=== PATIENT | male | born 1950 | race Caucasian/White ===

== ENCOUNTER 2018-01-08 17:14 | Observation (INO) | payer MEDICARE, OTHER ==
[2018-01-08 18:54] LABS: #Eosinphils 0.1 thou/uL (0.0-0.7); #Lymphocytes 1.9 thou/uL (1.20-3.40); #Monocytes 0.7 thou/uL (0.11-0.59); %Basophils 0.4 % (0.0-1.0); %Eosinophils 1.1 % (0.0-10.0); %Lymphocytes 19.1 % (21.0-51.0); %Monocytes 7.2 % (0.0-10.0); %Neutrophils 72.2 % (42.0-75.0); Hemoglobin 15.2 g/dL (14.0-18.0); Mean Corpuscular HGB CONC 35.5 g/dL (32.0-36.0); Mean Corpuscular Hemoglobin 33.9 pg (27.0-31.0); Mean Corpuscular Volume 95.6 fL (78.0-98.0); Platelet Count 201 thou/uL (130-400); RBC Distribution Width 12.3 % (11.5-14.5); Red Blood Cell (RBC) Count 4.48 mill/uL (4.70-6.10); White Blood Cell (WBC) Count 9.7 thou/uL (4.8-10.8)
[2018-01-08 19:15] LABS: ALT (SGPT) 27 U/L (8-55); AST (SGOT) 31 U/L (5-34); Albumin 4.1 g/dL (3.4-4.8); Alkaline Phosphatase 33 U/L (40-150); Anion Gap 12 mmol/L (10-20); BUN (Urea Nitrogen) 22 mg/dL (8.4-25.7); Bilirubin, Total 1.3 mg/dL (0.2-1.2); Calc. Creatinine Clearance 0 mL/min (70-130); Calcium 8.7 mg/dL (7.8-10.44); Carbon Dioxide 20 mmol/L (23-31); Chloride 105 mmol/L (98-107); Estimated GFR-MDRD 50; Globulin 2.6 g/dL (2.4-3.5); Glucose 103 mg/dL (80-115); Potassium 4.3 mmol/L (3.5-5.1); Protein, Total 6.7 g/dL (5.8-8.1); Sodium 133 mmol/L (136-145)
--- NOTE | 2018-01-08 20:10 | CT ---
CT HEAD WITHOUT CONTRAST: Technique: Multiple contiguous axial images were obtained through the head without IV enhancement. Indication: Dysarthria. FINDINGS: Ventricles have normal size and position. No evidence of hemorrhage or mass. No evidence of cortical infarct identified. Sinuses and mastoids are aerated. IMPRESSION: No evidence of acute process. POS: [facility]
--- NOTE | 2018-01-08 22:50 | MRI ---
MRI BRAIN WITHOUT CONTRAST: Technique: Multiplanar, multisequence MRI images were obtained of the brain. Indications: Dysarthria. FINDINGS: Mild cortical volume loss. Ventricles have normal size and position. There is no evidence of restricted diffusion. No evidence of infarct, mass, or edema. No significant white matter abnormality. The intracranial internal carotid arteries and proximal cerebral arteries show flow voids. IMPRESSION: NO evidence of acute process. POS: [facility]
[2018-01-09 02:04] VITALS: BMI 34.2
[2018-01-09] MEDS ORDERED: Ondansetron ODT 4 MG TAB PO PRN (07:33)
[2018-01-09] MEDS ORDERED: Acetaminophen 325 MG TAB PO PRN (07:33)
--- NOTE | 2018-01-09 08:04 | HP ---
PRIMARY CARE PROVIDER: Dr. Ignacio Lundberg. Referred to the [facility] [[email or web address] Service after transfer from [facility] yesterday nichol fernandez. HISTORY OF PRESENT ILLNESS: The patient had trouble putting words together, had some loss of orienta tion. He was perseverating. This lasted several hours. He takes a baby aspirin daily. He had no v isual defect. No movement problem. Symptoms resolved after 3-4 hours. He received a full dose of a spirin in the emergency room in [place]. PAST MEDICAL HISTORY: Hypertension, coronary artery disease, post-coronary artery bypass graft 2 yea rs ago, dyslipidemia. CURRENT MEDICATIONS: Include aspirin 81 mg a day, Lipitor 40 mg a day, fenofibrate 145 mg a day, nakia apentin 300 mg 3 times a day, lisinopril 5 mg a day, metoprolol 50 mg twice a day, Flomax 0.4 mg a da y and Viibryd 40 mg a day, zolpidem 10 mg a day. ALLERGIES: No known drug allergies. PAST SURGICAL HISTORY: Negative other than his coronary artery bypass graft. FAMILY HISTORY: Both parents with coronary artery disease. No history of strokes in the family . SOCIAL HISTORY: Full code. at bedside, surrogate decision maker. No tobacco, no alcohol. REVIEW OF SYSTEMS: General: No dizziness, fainting. EYES: No double vision, blurred vision, flash ing light. ENT: No ear pain or drainage. No nasal bleeding. No trouble swallowing. Cardiac: No chest pain, orthopnea or paroxysmal nocturnal dyspnea. Respiratory: No cough, wheezing or asthma. Gastrointestinal: No nausea, vomiting, diarrhea, constipation or abdominal pain. Genit ourinary: No hematuria, dysuria. Musculoskeletal: No pain or swelling in his muscles or joints. N eurological: No prior neurological problem. Psychiatric: No anxiety, depression. Skin: No bruisi ng, bleeding or rash. Heme/Lymph: No tender or swollen lymph nodes in axilla, inguinal or cervical area. PHYSICAL EXAMINATION: GENERAL: The patient is alert, oriented, pleasant, cooperative gentleman. VITAL SIGNS: Temperature 97.8, pulse 78, respirations 18, blood pressure 117/53. HEENT: Reveal pupils equal, round, and reactive to light. Extraocular movements are intact. Sclera e white. Tympanic membranes are clear. Nose is clear. Oral mucous membranes are wet. Dental hygie ne is good. NECK: Supple, without jugular venous distention, adenopathy, thyromegaly. CHEST: Clear to auscultation and percussion. HEART: Had a regular rate and rhythm. First and second heart sounds are clear. There are no murmur s or gallops. ABDOMEN: Soft, bowel sounds normal. No hepatosplenomegaly, no masses, no rebound, no bruits. Bowel sounds intact. EXTREMITIES: No cyanosis, clubbing or edema. PULSES: Carotid, radial, femoral, and dorsalis pedis pulses intact and symmetric. SKIN: Warm and dry without bruises or rash. HEME/LYMPH: No tender or swollen lymph nodes in axilla, inguinal or cervical area. No petechial hem orrhages. NEUROLOGIC: Cranial nerves II through XII are intact. Deep tendon reflexes symmetric. Toes downgoi ng. Rekwov-zimn-ismcyc symmetric and normal. LABORATORY DATA AND IMAGING: Studies done. Brain CT, no acute process. MRI of the brain, no eviden ce of infarct, bleeding, midline shift, etc., reviewed by me. EKG: Regular sinus rhythm, nonspecifi c ST abnormality, reviewed by me. Sodium 133, potassium 4.3, CO2 20, BUN 22, creatinine 1.4, bilirub in 1.3. Transaminases normal. CBC normal. ADMITTING DIAGNOSES: 1. Transient ischemic attack in the left middle cerebral artery distribution. 2. Coronary artery disease, post-coronary artery bypass graft. 3. Hypertension. 4. Dyslipidemia. PLAN: The patient has been increased from 81 mg a day to 325 mg of aspirin a day. His CAT scan is u nremarkable as is his MRI. Carotid ultrasound and echocardiogram will be done. Aspirin as I said be fore, has been increased. His statin, blood pressure medicines, etc. will be continued. We will rev iew when data obtained for further recommendations in this patient's care.
[2018-01-09] MEDS ORDERED: VILAZODONE HCL 40 MG PO SCH (09:00)
[2018-01-09] MEDS ORDERED: Fenofibrate Nanocrystallized 145 MG TAB PO SCH (09:00)
[2018-01-09] MEDS ORDERED: Aspirin 325 mg Enteric Coated Tablet PO SCH (09:00)
[2018-01-09] MEDS ORDERED: Tamsulosin HCl 0.4 MG CAP PO SCH (09:00)
[2018-01-09] MEDS ORDERED: VIIBRYD 40 MG PO SCH (09:00)
[2018-01-09] MEDS ORDERED: Lisinopril 5 MG TAB PO SCH (09:00)
[2018-01-09] MEDS: Gabapentin 300 MG CAP PO SCH ×3 (09:18→20:12)
[2018-01-09] MEDS: Metoprolol Tartrate 50 MG TAB PO SCH ×2 (09:18→20:12)
--- NOTE | 2018-01-09 12:16 | ULT ---
CAROTID DOPPLER: Ultrasound doppler study was performed of the extracranial carotid arteries. Indication: TIA. FINDINGS: Ultrasound, color doppler, spectral analysis of velocity recordings obtained. Ultrasound shows echogenic plaque and intimal thickening throughout both extracranial carotid systems . Velocity records are within normal range. No evidence of significant stenosis identified in either internal carotid artery. Vertebral arteries show antegrade flow. IMPRESSION: 1. Mild to moderate echogenic plaque and intimal thickening bilaterally. 2. No evidence of stenosis identified. POS: [facility]
[2018-01-09 20:01] VITALS: BP 105/60; TEMP 97.4
[2018-01-09] MEDS ORDERED: Atorvastatin Calcium 40 MG TAB PO SCH (21:00)
--- NOTE | 2018-01-09 21:20 | DIS ---
TRANSFER OF CARE DATE OF ADMISSION: 01/08/2018 DATE OF DISCHARGE: 01/09/2018 DISCHARGE DISPOSITION: Discharged home. PRIMARY CARE PROVIDER: Ignacio Lundberg M.D. DISCHARGE DIAGNOSES: Transient ischemic attack, coronary artery disease, hypertension, chronic kidney disease 3. DISCHARGE MEDICATIONS: Ambien 10 at bedtime p.r.n., Flomax 0.4 mg a day, fenofibrate 140 mg a day, L ipitor 40 mg a day, Viibryd 40 mg a day, metoprolol 50 mg twice a day, lisinopril 5 mg a day, gabapen tin 300 mg 3 times a day, aspirin 325 mg a day. CODE STATUS: Full. DIET: Heart healthy. PENDING AT THE TIME OF DISCHARGE: Nothing. HOSPITAL COURSE: The patient presented with transient difficulty with speech perseverating. He had no other neurological symptoms. He takes 81 mg aspirin a day. His admitting CT was unremarkable. Keenan arrieta was admitted. His follow up MRI was also unrevealing for acute process. Carotid Doppler showed no stenosis. He was increased to 325 mg of aspirin a day. He has done well all day. He is desirous o f going home. CBC was accounted at 9.7, hemoglobin 15.2, platelet count 201,000. Comp metabolic pro file, creatinine 1.4, sodium 133, CO2 of 20, bilirubin 1.3, alkaline phosphatase 33, otherwise normal . Neurological exam is entirely normal. Vital signs are normal. Cardiorespiratory exam is normal. He is being discharged for followup with Dr. Lundberg in 1 week. CONSULTATIONS: No consultations. PROCEDURES: No procedures.
--- NOTE | 2018-01-10 04:51 | CON ---
DATE OF CONSULTATION: 01/09/2018 REFERRING PHYSICIAN: Dr. Nicolasa Dumont. REASON FOR CONSULTATION: TIA. HISTORY OF PRESENT ILLNESS: Mr. Prieto is a pleasant 67-year-old male who has been consult ed for evaluation of TIA. History is obtained from patient and his who was present at bedside. reports that on yesterday, he woke up earlier than his expected wake up time. At that time, timothy arrieta asked him a question which he had responded appropriately; however, after an hour, when she went ba to see him and asked him some questions, he was very slow to respond and did not know what was goi ng on, which prompted her to bring him to the [facility]. By the time, he arrived to the hospital, his symptoms had resolved. He did not have any vision changes, headaches, chest pain, palpitation, numbness, tingling, weakness, difficulty with balance. PAST MEDICAL HISTORY: Significant for hypertension, coronary artery disease. PAST SURGICAL HISTORY: Significant for coronary artery bypass graft surgery. SOCIAL HISTORY: He denies smoking, alcohol use, or illicit drug use. He is . FAMILY HISTORY: Noncontributory. CURRENT MEDICATIONS: Please review MAR. ALLERGIES: No known drug allergies. REVIEW OF SYSTEMS: As mentioned, which was negative. PHYSICAL EXAMINATION: VITAL SIGNS: Blood pressure of 107/54, pulse of 75, temperature of 97.9, respirations of 16, O2 sats of 95% on room air. GENERAL: Well-developed, well-nourished male in no apparent distress. RESPIRATORY: Clear to auscultation bilaterally. CARDIOVASCULAR: Regular rate and rhythm. NEUROLOGIC: Mental status: The patient is awake, alert, oriented x3. Speech and language: Fluent speech. Cranial nerves: Pupils are 3 mm and reactive. Visual anderson are intact. Extraocular muscl es are intact. No nystagmus noted. Face is symmetric. Tongue and uvula midline. Motor exam showed normal tone and bulk with a 5/5 strength in both upper and lower extremities. Babinski: Plantar re sponses flexion bilaterally. Sensory: Sensation is intact and symmetric. Deep tendon reflexes 1+ r eflex in both upper extremities. Coordination intact to mzvqyu-houk-erhiku finger tapping bilaterall y. LABORATORY DATA: Labs are reviewed, which included CBC, CMP, which is significant for sodium of 133, creatinine of 1.4, otherwise unremarkable. IMAGING STUDIES: MRI of brain without contrast was reviewed, which showed no acute intracranial abno rmality. Carotid Doppler results were reviewed, which showed no hemodynamically significant stenosis . IMPRESSION: Transient ischemic attack. Mr. Prieto is a pleasant 67-year-old male who presented with an acute onset of confusion that resolved within few minutes. This may have been a TIA. At this time, I would recommend continuing on aspirin 81 mg daily for secondary stroke prevention. I have advised them to follow up with the [facility] as outpatient to have more detailed cardiac workup done.
--- NOTE | 2018-01-14 12:28 | EKG ---
Test Reason : Blood Pressure : / mmHG Vent. Rate : 060 BPM Atrial Rate : 060 BPM P-R Int : 164 ms QRS Dur : 080 ms QT Int : 420 ms P-R-T Axes : 045 028 098 degrees QTc Int : 420 ms Normal sinus rhythm Nonspecific ST and T wave abnormality Abnormal ECG No ST elevation/depression Confirmed by REBECA SALDIVAR DO ([id number]), state editor THUAN CHILDERS ([id number]) on 01/14/2018 12:28:13 PM Referred By: Confirmed By:REBECA SALDIVAR DO
== END 2018-01-09 20:19 | disposition home or self-care (01) ==
LOC: ERS 17:14 → ERHOLD 23:20 → 2SW 01-09 01:57
PROVIDERS: ADMIT Hospitalist; ATTEND Hospitalist
DX: G45.9 Transient cerebral ischemic attack, unspecified (principal); I25.10 Atherosclerotic heart disease of native coronary artery without angina pectoris; I12.9 Hypertensive chronic kidney disease with stage 1 through stage 4 chronic kidney disease, or unspecified chronic kidney disease; N18.3 Chronic kidney disease, stage 3 (moderate); Z79.82 Long term (current) use of aspirin; Z79.899 Other long term (current) drug therapy
CPT/HCPCS: 70450; 70551; 80053; 85025; 93005; 93306; 93880; 97139; 99285; G0378; G8978; G8979; G8980; 36415; G9162-GN-CH; G9163-GN-CH